=== PATIENT | female | born 1970 | race Caucasian/White ===

== ENCOUNTER 2018-08-20 06:19 | Day surgery (SDC) | payer SELFPAY ==
--- NOTE | 2018-08-20 06:39 | C.PDOC ---
History Of Present Illness Patient came in this morning due to history of heavy vaginal bleed for the past 9 days.. Hx of uterine tumor. Had D&C last year the [facility]. Time Seen by Provider: 08/20/18 06:38 Chief Complaint (Nursing): Female Genitourinary History Per: Patient History/Exam Limitations: no limitations Onset/Duration Of Symptoms: Intermittent Episodes Current Symptoms Are (Timing): Better Severity: Severe Pain Scale Rating Of: 0 Quality Of Discomfort: Sharp Associated Symptoms: Other (heavy vaginal bleed.) Alleviating Factors: None Recent travel outside of the [place]: No Additional History Per: Patient Abnormal Vaginal Bleeding: Yes Past Medical History Vital Signs: Last Vital Signs Temp 98.3 F 08/20/18 06:27 Pulse 91 H 08/20/18 06:27 Resp 18 08/20/18 06:27 BP 138/71 08/20/18 06:27 Pulse Ox 100 08/20/18 06:27 - Medical History PMH: No Chronic Diseases Other PMH: uterine fibroid Other Surgeries: had D & C Family History: States: Unknown Family Hx - Social History Hx Alcohol Use: Yes Hx Substance Use: No - Immunization History Hx Tetanus Toxoid Vaccination: No Hx Influenza Vaccination: No Hx Pneumococcal Vaccination: No Review Of Systems Constitutional: Negative for: Fever, Chills, Sweats Eyes: Negative for: Pain ENT: Negative for: Ear Pain Cardiovascular: Negative for: Chest Pain, Palpitations, Orthopnea, Paroxysmal Noc. Dyspnea Respiratory: Negative for: Cough, Shortness of Breath Gastrointestinal: Negative for: Nausea, Vomiting, Abdominal Pain, Diarrhea Genitourinary: Positive for: Vaginal Bleeding. Negative for: Dysuria, Frequency, Hematuria, Pelvic Pain Musculoskeletal: Negative for: Neck Pain, Shoulder Pain Skin: Negative for: Rash Neurological: Negative for: Weakness, Numbness, Incoordination, Change in Speech Psych: Negative for: Anxiety, Depression, Psychosis Physical Exam - Physical Exam Appears: Non-toxic, No Acute Distress Skin: Normal Color Head: Atraumatic Eye(s): bilateral: Normal Inspection, PERRL, EOMI Nose: Normal Neck: Normal Cardiovascular: Rhythm Regular Respiratory: Normal Breath Sounds Gastrointestinal/Abdominal: Normal Exam, No Tenderness, No Organomegaly Rectal: Deferred Back: Normal Inspection Pelvic: Vaginal Bleeding, Other (moderate bleeding) Extremity: Normal ROM ED Course And Treatment O2 Sat by Pulse Oximetry: 100 Disposition Discussed With : Darling Arrington Doctor Will See Patient In The: Hospital Counseled Patient/Family Regarding: Diagnosis - Disposition Disposition: HOSPITALIZED Disposition Time: 06:56 Condition: STABLE Forms: [facility] (French) - Clinical Impression Clinical Impression: Abnormal uterine bleeding, Uterine mass
[2018-08-20] MEDS ORDERED: Sodium Chloride 0.9% 1,000 ML IV ONE (06:43)
[2018-08-20 07:17] LABS: BASO # 0.1 K/uL (0.0-0.2); BASO % 1.2 % (0.0-2.0); EOS # 0.1 K/uL (0.0-0.7); EOS % 1.5 % (0.0-4.0); HEMOGLOBIN 9.1 g/dL (11.0-16.0); LYMPH # 1.4 K/uL (1.0-4.3); LYMPH % 18.8 % (20.0-40.0); MEAN CELL VOLUME 95.9 fL (81.0-99.0); MEAN CORPUSCULAR HEMOGLOBIN 30.9 pg (27.0-31.0); MEAN CORPUSCULAR HGB CONC 32.2 g/dL (33.0-37.0); MEAN PLATELET VOLUME 9.3 fL (7.2-11.7); MONO # 0.4 K/uL (0.0-0.8); MONO % 5.9 % (0.0-10.0); NEUT # 5.3 K/uL (1.8-7.0); NEUT % 72.6 % (50.0-75.0); NRBC % 0.1 % (0.0-2.0); RBC 2.94 Mil/uL (3.80-5.20); RED CELL DISTRIBUTION WIDTH 12.8 % (11.5-14.5); WHITE BLOOD COUNT 7.3 K/uL (4.8-10.8)
[2018-08-20 07:29] LABS: PROTHROMBIN TIME 10.7 SECONDS (9.7-12.2)
[2018-08-20 07:36] LABS: ALB/GLOB RATIO 1.8 (1.0-2.1); ALBUMIN 4.2 g/dL (3.5-5.0); ALT/SGPT 16 U/L (9-52); AST/SGOT 26 U/L (14-36); BLOOD UREA NITROGEN 6 mg/dL (7-17); CALCIUM 8.5 mg/dl (8.6-10.4); GFR NON-AFRICAN AMERICAN > 60
[2018-08-20] MEDS ORDERED: Potassium Chloride 20 mEq ER Tab PO STA (07:42)
[2018-08-20 08:03] LABS: URINE BILIRUBIN NEGATIVE (NEGATIVE); URINE BLOOD 3+ (NEGATIVE); URINE CLARITY Turbid (Clear); URINE COLOR Red (YELLOW); URINE GLUCOSE (UA) 1+ mg/dL (Normal); URINE LEUKOCYTE ESTERASE NEG Leu/uL (Negative); URINE PROTEIN 2+ mg/dL (NEGATIVE); URINE UROBILINOGEN NORMAL mg/dL (0.2-1.0)
[2018-08-20] MEDS ORDERED: Midazolam 2 MG/2 ML VIAL ONE (08:55)
[2018-08-20] MEDS ORDERED: Propofol 10 mg/ml Inj (20 ML) ONE (08:55)
--- NOTE | 2018-08-20 09:18 | CP.PCM.HP ---
History of Present Illness - History of Present Illness History of Present Illness: 47 y/o P1 wiht aub over past 9-12 months. pt preorts heavy cycle gernally 5-7 dyas however most recently has been bleedign non stop x 9 days passing large clots wiht intermittent cramping. pt was evaluted by farm facility manager had an US doen which wa s supscion for polyp or submucosal myoma. pt rperots feelign weak and tired adn was advise to come ot the ER for evaluation. Upon examination pt was noted to be bleeding. Pt deies any bowel ro bladder ocmpliants OB: CxSx1 SORT SUPERVISOR: AUB, deies hx of abnormal pap, ovairan syt, sti PMH: Anemia PSH: CxS FHX: non contrbirom MEDS: none NKDA SHX: negative x 3 Present on Admission - Present on Admission Any Indicators Present on Admission: No Review of Systems - Constitutional Constitutional: As Per HPI - Breasts Breasts: As Per HPI - Cardiovascular Cardiovascular: As Per HPI - Respiratory Respiratory: As Per HPI - Gastrointestinal Gastrointestinal: As Per HPI, Abdominal Pain - Genitourinary Genitourinary: As Per HPI - Reproductive: Female Reproductive:Female: Currently Menstual, Menses >/= 8 Days, Heavy Menses - Menstruation Menstruation: As Per HPI - Musculoskeletal Musculoskeletal: As Per HPI - Integumentary Integumentary: As Per HPI - Neurological Neurological: As Per HPI - Psychiatric Psychiatric: As Per HPI Past Patient History - Past Social History Smoking Status: Never Smoked - PSYCHIATRIC Hx Substance Use: No - SURGICAL HISTORY Hx Surgeries: Yes Other/Comment: D and C - ANESTHESIA Hx Anesthesia: Yes Hx Anesthesia Reactions: No Hx Malignant Hyperthermia: No Meds Allergies/Adverse Reactions: Allergies Allergy/AdvReac Type Severity Reaction Status Date / Time No Known Allergies Allergy Unverified 08/20/18 06:30 Physical Exam - Constitutional Appears: Well, Non-toxic - Head Exam Head Exam: NORMAL INSPECTION - Eye Exam Eye Exam: Normal appearance - ENT Exam ENT Exam: Mucous Membranes Moist - Neck Exam Neck exam: Positive for: Full Rom - Respiratory Exam Respiratory Exam: Clear to Auscultation Bilateral, NORMAL BREATHING PATTERN - Cardiovascular Exam Cardiovascular Exam: REGULAR RHYTHM, +S1, +S2 - GI/Abdominal Exam GI & Abdominal Exam: Normal Bowel Sounds, Soft, Tenderness - Exam Exam: NORMAL INSPECTION External exam: NORMAL EXTERNAL EXAM. absent: Ecchymosis, Erythema, Lacerations, Lesions, Swelling Additional comments: External Genitalia: dark red on deng Vagina; dark red clot Cervx ;non tender Uteurs; enlarged Adnexa; non ntender, no masses /bl anus/ perienum :grossl normal Results - Vital Signs Recent Vital Signs: Last Vital Signs Temp 98.5 F 08/20/18 08:10 Pulse 88 08/20/18 08:10 Resp 20 08/20/18 08:10 BP 133/75 08/20/18 08:10 Pulse Ox 100 08/20/18 08:10 - Labs Result Diagrams: 08/20/18 07:13 08/20/18 07:13 Labs: Laboratory Results - last 24 hr 08/20/18 08/20/18 08/20/18 07:13 07:13 07:13 WBC 7.3 RBC 2.94 L Hgb 9.1 L Hct 28.2 L MCV 95.9 MCH 30.9 MCHC 32.2 L RDW 12.8 Plt Count 278 MPV 9.3 Neut % (Auto) 72.6 Lymph % (Auto) 18.8 L [place] % (Auto) 5.9 Eos % (Auto) 1.5 Baso % (Auto) 1.2 Neut # (Auto) 5.3 Lymph # (Auto) 1.4 [place] # (Auto) 0.4 Eos # (Auto) 0.1 Baso # (Auto) 0.1 PT 10.7 INR 1.0 APTT 31 Sodium 136 Potassium 3.1 L Chloride 103 Carbon Dioxide 28 Anion Gap 9 L BUN 6 L Creatinine 0.6 L Est GFR ( Amer) > 60 Est GFR (Non-Af Amer) > 60 Random Glucose 105 Calcium 8.5 L Total Bilirubin 0.3 AST 26 ALT 16 Alkaline Phosphatase 67 Total Protein 6.6 Albumin 4.2 Globulin 2.4 Albumin/Globulin Ratio 1.8 Urine Color Urine Clarity Urine pH Ur Specific [place] Urine Protein Urine Glucose (UA) Urine Ketones Urine Blood Urine Nitrate Urine Bilirubin Urine Urobilinogen Ur Leukocyte Esterase Urine WBC (Auto) Urine RBC (Auto) Blood Type Antibody Screen 08/20/18 08/20/18 07:13 07:30 WBC RBC Hgb Hct MCV MCH MCHC RDW Plt Count MPV Neut % (Auto) Lymph % (Auto) [place] % (Auto) Eos % (Auto) Baso % (Auto) Neut # (Auto) Lymph # (Auto) [place] # (Auto) Eos # (Auto) Baso # (Auto) PT INR APTT Sodium Potassium Chloride Carbon Dioxide Anion Gap BUN Creatinine Est GFR ( Amer) Est GFR (Non-Af Amer) Random Glucose Calcium Total Bilirubin AST ALT Alkaline Phosphatase Total Protein Albumin Globulin Albumin/Globulin Ratio Urine Color Red Urine Clarity Turbid Urine pH 6.0 Ur Specific [place] 1.028 Urine Protein 2+ H Urine Glucose (UA) 1+ Urine Ketones Negative Urine Blood 3+ H Urine Nitrate Negative Urine Bilirubin Negative Urine Urobilinogen Normal Ur Leukocyte Esterase Neg Urine WBC (Auto) 445 H Urine RBC (Auto) 951225 H Blood Type O POSITIVE Antibody Screen Negative Assessment & Plan (1) Abnormal uterine bleeding Assessment and Plan: 47 y/o P1 wtih AUB with sypomatc anemia -r/b/a/i of medical vs surgical wallace lanier. -pt cosneted for dxc hyserscopy -coroner technician to or -npo, ivf, pre op labs Status: Acute
[2018-08-20] MEDS ORDERED: HYDROmorphone 0.5 mg/0.5 ml ISec IVP PRN (10:43)
[2018-08-20 12:09] LABS: BASO # 0.1 K/uL (0.0-0.2); BASO % 0.8 % (0.0-2.0); EOS # 0.1 K/uL (0.0-0.7); EOS % 1.3 % (0.0-4.0); HEMOGLOBIN 7.2 g/dL (11.0-16.0); LYMPH # 1.7 K/uL (1.0-4.3); LYMPH % 26.6 % (20.0-40.0); MEAN CELL VOLUME 96.6 fL (81.0-99.0); MEAN CORPUSCULAR HEMOGLOBIN 31.4 pg (27.0-31.0); MEAN CORPUSCULAR HGB CONC 32.5 g/dL (33.0-37.0); MEAN PLATELET VOLUME 8.9 fL (7.2-11.7); MONO # 0.5 K/uL (0.0-0.8); MONO % 7.1 % (0.0-10.0); NEUT # 4.1 K/uL (1.8-7.0); NEUT % 64.2 % (50.0-75.0); NRBC % 0.1 % (0.0-2.0); RBC 2.28 Mil/uL (3.80-5.20); RED CELL DISTRIBUTION WIDTH 13.2 % (11.5-14.5); WHITE BLOOD COUNT 6.4 K/uL (4.8-10.8)
[2018-08-20 12:25] LABS: BLOOD UREA NITROGEN 4 mg/dL (7-17); CALCIUM 7.8 mg/dl (8.6-10.4); GFR NON-AFRICAN AMERICAN > 60
[2018-08-20] MEDS ORDERED: Lactated Ringer's 1,000 ML IV ONE (13:30)
[2018-08-20 16:10] VITALS: RESP 18; O2SAT 100
[2018-08-20 18:05] VITALS: BP 100/59; PULSE 72; TEMP 97.7
--- NOTE | 2018-08-20 22:43 | OP ---
PROCEDURE DATE: 08/20/2018 PREOPERATIVE DIAGNOSIS: Abnormal uterine bleeding. POSTOPERATIVE DIAGNOSIS: Abnormal uterine bleeding with submucosal myoma. PROCEDURE: Hysteroscopic myomectomy, dilation and curettage. TYPE OF ANESTHESIA: General LMA. ESTIMATED BLOOD LOSS: 100 mL OPERATIVE FINDINGS: A 10-week size uterus. Cervical dilation 2 cm with moderate amount of blood coming from the cervical os. Upon hysteroscopy, bilateral ostia were visualized and enlarged possibly 4 to 5 cm myoma visualized within cavity 100%, resected using MyoSure device and also using polyp forceps. Good hemostasis noted. FLUID DEFICIT: 1200 mL. BLOOD PRODUCTS: None. COMPLICATIONS: None. SPECIMENS: Endometrial curetting, endocervical curetting, submucosal myoma. DESCRIPTION OF PROCEDURE: The patient was taken to the operating room where she was given general anesthesia. Once it was found to be adequate, she was placed on the operating table in dorsal supine position with legs supported using stirrups. The patient was then prepped and draped in the normal sterile fashion. A time-out was performed to confirm correct patient and correct procedure. Bimanual exam was performed with the above-mentioned findings. A Cook retractor was placed in the anterior and posterior fornix of the vagina. Cervix was adequately visualized with the above-mentioned findings. Endocervical curettings were obtained with a Stephonian curette and sent to Pathology on [facility]. The uterus was then sounded to 8 cm following which the cervix was already sequentially dilated. Hysteroscope was inserted under direct visualization using normal saline as the distention media. Bilateral ostia were visualized and there was a mass noted within the cavity which appeared to be a submucosal myoma. The mass was noted to be connected to the left uterine wall close to the cornua. The edge of the MyoSure device was used to help resect it to help make it mobilized and free up to a maximum fluid deficit as mentioned above. Following this, polyp forceps were inserted to help remove the remaining portions of the myoma that were not resected. Gentle curettage was done. The hysteroscope was then reinserted and there was still myoma tissue noted. Additional curettage was done until a gritty texture was noted at 360 degrees. All instruments were removed. A pediatric Ghosh catheter was inserted and inflated to 10 mL of air there was good hemostasis noted which was removed in the recovery room. At the end of the procedure, all needle, sponge and instrument counts were noted and correct x2. The patient tolerated the procedure well and was transferred to the recovery room in stable condition. Darling Arrington MD
--- NOTE | 2018-08-21 11:26 | CARD ---
APPROVED REPORT Date of service: 08/20/2018 EKG Measurement Heart [id number] NM [id number] [id number] <Conclusion> Normal sinus rhythm Junctional ST depression, probably normal Borderline ECG
== END 2018-08-20 18:08 | disposition home or self-care (01) ==
LOC: C.SDS 06:19 → C.ER 06:19 → C.SDS 07:15
PROVIDERS: ATTEND Obstetrics & Gynecology
DX: N93.9 Abnormal uterine and vaginal bleeding, unspecified (principal); D25.0 Submucous leiomyoma of uterus
CPT/HCPCS: 58558; 80048; 80053; 81001; 85025; 85610; 85730; 86850; 86900; 88305; 93005; 99285; J1170; J2250; J2405; J2704; J3010; J7030; J7120